=== PATIENT | male | born 1980 | race Caucasian/White ===

== ENCOUNTER 2017-07-18 19:21 | Emergency (ER) | payer BC ==
[2017-07-18] MEDS ORDERED: Lidocaine 1% w/Epinephrine 1:200K 30 ML VIAL ONE (20:49)
--- NOTE | 2017-07-18 21:08 | RAD ---
RIGHT FOOT THREE VIEWS: History: Injury, right foot laceration, right foot pain. FINDINGS/IMPRESSION: No acute fracture or dislocation is identified. No radiopaque foreign body is seen. POS: [id number]
== END 2017-07-18 21:47 | disposition home or self-care (01) ==
LOC: ERS 19:21
DX: S91.311A Laceration without foreign body, right foot, initial encounter (principal); F41.9 Anxiety disorder, unspecified; Z79.899 Other long term (current) drug therapy; W25.XXXA Contact with sharp glass, initial encounter
CPT/HCPCS: 12032